=== PATIENT | male | born 1950 | race African-American/Black ===

== ENCOUNTER 2020-07-07 08:18 | Day surgery (SDC) | payer MEDICARE ==
[2020-07-02 12:40] VITALS: BMI 25.7
[2020-07-07 08:40] LABS: #Basophils 0.1 thou/uL (0.0-0.2); #Eosinphils 0.1 thou/uL (0.0-0.7); #Lymphocytes 2.2 thou/uL (1.20-3.40); #Monocytes 0.6 thou/uL (0.11-0.59); #Neutrophils 3.2 thou/uL (1.40-6.50); %Basophils 0.9 % (0.0-1.0); %Eosinophils 1.9 % (0.0-10.0); %Lymphocytes 35.7 % (21.0-51.0); %Monocytes 10.4 % (0.0-10.0); %Neutrophils 51.2 % (42.0-75.0); Hemoglobin 13.9 g/dL (14.0-18.0); Mean Corpuscular HGB CONC 31.7 g/dL (32.0-36.0); Mean Corpuscular Hemoglobin 31.2 pg (27.0-31.0); Mean Corpuscular Volume 98.4 fL (78.0-98.0); Mean Platelet Volume 9.1 fL (7.4-10.4); Platelet Count 146 thou/uL (130-400); RBC Distribution Width 13.6 % (11.5-14.5); Red Blood Cell (RBC) Count 4.45 mill/uL (4.70-6.10); White Blood Cell (WBC) Count 6.2 thou/uL (4.8-10.8)
[2020-07-07 08:45] LABS: Prothrombin Time 12.8 sec (12.0-14.7)
[2020-07-07 08:46] LABS: PTT 29.2 sec (22.9-36.1)
[2020-07-07] MEDS ORDERED: Iopamidol 370 76% 100 ML VIAL ONE (10:31)
[2020-07-07 14:30] VITALS: BP 179/76; TEMP 98
== END 2020-07-07 12:30 | disposition home or self-care (01) ==
LOC: CT 08:18
PROVIDERS: ATTEND Urology
PROC: 0TB13ZX Excision of Left Kidney, Percutaneous Approach, Diagnostic (ICD-10-PCS; principal; 2020-07-07)
DX: D41.02 Neoplasm of uncertain behavior of left kidney (principal); N40.1 Benign prostatic hyperplasia with lower urinary tract symptoms; I71.4 Abdominal aortic aneurysm, without rupture; I72.3 Aneurysm of iliac artery; M10.9 Gout, unspecified; M19.90 Unspecified osteoarthritis, unspecified site; E11.9 Type 2 diabetes mellitus without complications; I10 Essential (primary) hypertension; E78.5 Hyperlipidemia, unspecified; Z87.891 Personal history of nicotine dependence; Z79.899 Other long term (current) drug therapy
CPT/HCPCS: 50200; 74170; 77002; 85025; 85610; 85730; 88305; 88341; 88342; Q9967

== ENCOUNTER 2020-07-16 15:29 | Outpatient (CLI) | payer MEDICARE ==
[2020-07-16 17:32] LABS: Hemoglobin 14.5 g/dL (13.5-17.5); Mean Corpuscular HGB CONC 32.4 g/dL (32.0-36.0); Mean Corpuscular Hemoglobin 31.5 pg (27.0-33.0); Mean Corpuscular Volume 97.2 fl (81.2-95.1); Mean Platelet Volume 11.6 fl (7.4-10.4); Platelet Count 195 10x3/uL (150-450); RBC Distribution Width 14.4 % (11.5-14.5); Red Blood Cell (RBC) Count 4.61 10x6/uL (4.32-5.72); White Blood Cell (WBC) Count 7.1 10x3/uL (3.5-10.5)
[2020-07-16 17:33] LABS: Anion Gap 17 mmol/L (10-20); BUN (Urea Nitrogen) 25 mg/dL (8.4-25.7); Calc. Creatinine Clearance 0 mL/min (70-130); Calcium 9.3 mg/dL (7.8-10.44); Carbon Dioxide 23 mmol/L (23-31); Chloride 108 mmol/L (98-107); Glucose 84 mg/dL (80-115); Potassium 4.5 mmol/L (3.5-5.1); Sodium 143 mmol/L (136-145)
[2020-07-16 17:49] LABS: Bilirubin Neg (Negative); Blood, Urine 10 (Negative); Clarity Clear (Clear); Glucose, Urine (Dipstick) Normal (Negative); Ketone, Urine Negative (Negative); Leukocyte Negative (Negative); Nitrite Negative (Negative); Protein, Urine (Dipstick) 100 mg/dl (Neg-Trace); Specific Gravity, Urine 1.015 (1.002-1.036); Urobilinogen Normal mg/dL (Less than 2)
[2020-07-16 18:02] LABS: Bacteria/HPF 2+ HPF (None Seen); Mucous/LPF Rare LPF (<2+); RBC/HPF 0-3 HPF (0-3); Squamous Epithelial 0-3 HPF (0-3); WBC/HPF 0-3 HPF (0-3)
[2020-07-16 18:03] LABS: PTT 26.9 sec (22.0-33.0); Prothrombin Time 10.6 sec (9.5-12.1)
[2020-07-17 01:53] LABS: SARS-CoV-2 PCR by NAA Not Detected (NotDetected)
== END 2020-07-16 15:30 | disposition home or self-care (01) ==
LOC: LABBT 15:29
PROVIDERS: ATTEND Urology
DX: Z01.818 Encounter for other preprocedural examination (principal); C64.2 Malignant neoplasm of left kidney, except renal pelvis; Z20.822 Contact with and (suspected) exposure to COVID-19
CPT/HCPCS: 71045; 80048; 81001; 85027; 85610; 85730; 86850; 86900; 86901; 86920; 87086; 93005; U0003; U0005; 87635; 93010

== ENCOUNTER 2020-07-16 15:45 | Inpatient (IN) | payer MEDICARE ==
[2020-07-20 10:03] VITALS: BMI 25.1
[2020-07-21] MEDS ORDERED: Midazolam HCl 2 mg/2 ml Vial ONE (11:59)
[2020-07-21] MEDS ORDERED: Fentanyl 250 MCG/5 ML VIAL ONE (11:59)
[2020-07-21] MEDS ORDERED: Ondansetron PF 4 MG/2 ML Vial ONE (12:30)
[2020-07-21] MEDS ORDERED: Glycopyrrolate 0.2 MG/ML 5 ML SYRINGE ONE (12:30)
[2020-07-21] MEDS ORDERED: PROPOFOL 200 MG/20 ML VIAL ONE (12:30)
[2020-07-21] MEDS ORDERED: Dexamethasone 20 MG/5 ML VIAL ONE (12:30)
[2020-07-21] MEDS ORDERED: ePHEDrine Sulfate 50 MG/10 ML VIAL ONE (12:30)
[2020-07-21] MEDS ORDERED: PHENYLEPHRINE-NS 100 MCG/ML 10 ML SYRINGE ONE (12:30)
[2020-07-21] MEDS ORDERED: Rocuronium Bromide 10 MG/ML (10ML VIAL) ONE (12:30)
[2020-07-21] MEDS ORDERED: Lidocaine 1% PF 5 ML VIAL ONE (12:30)
[2020-07-21] MEDS ORDERED: Bupivacaine 0.25% HCL 30 ML VIAL ONE (12:34)
[2020-07-21] MEDS ORDERED: EPINEPHrine 1 MG/ML AMP ONE (12:34)
[2020-07-21] MEDS ORDERED: SUGAMMADEX SODIUM 200 MG/2 ML VIAL ONE (14:04)
[2020-07-21] MEDS ORDERED: Fentanyl 100 MCG/2 ML VIAL ONE ×3 (15:05→16:29)
[2020-07-21] MEDS ORDERED: diphenhydrAMINE 50 MG/ML VIAL IVP PRN ×2 (15:48→16:57)
[2020-07-21] MEDS ORDERED: Ondansetron PF 4 MG/2 ML Vial IVP PRN ×2 (15:48→16:57)
[2020-07-21] MEDS ORDERED: Zolpidem Tartrate 5 MG TAB PO PRN ×2 (15:48→16:57)
[2020-07-21] MEDS ORDERED: Morphine 4 MG/ML VIAL SLOW IVP PRN (15:48)
[2020-07-21] MEDS ORDERED: HYDROcodone/Acetaminophen 5/325 mg Tablet PO PRN (15:48)
[2020-07-21] MEDS ORDERED: diphenhydrAMINE 25 MG CAP PO PRN (16:57)
[2020-07-21] MEDS ORDERED: Naloxone HCl 0.4 mg/ml Vial IV PRN (16:57)
[2020-07-21] MEDS ORDERED: Promethazine HCl 25 MG/ML VIAL IM PRN (16:57)
[2020-07-21] MEDS ORDERED: diphenhydrAMINE 50 MG/ML VIAL IM PRN (16:57)
[2020-07-21] MEDS ORDERED: HYDROmorphone 10 mg/100 ml CADD IVPB PRN (16:57)
[2020-07-21] MEDS ORDERED: Communication Order-Pharmacy FS SCH (17:00)
[2020-07-21] MEDS ORDERED: Morphine 4 MG/ML VIAL ONE (17:17)
[2020-07-21] MEDS: Sodium Chloride 0.9% 1,000 ML IV SCH (19:48)
[2020-07-21] MEDS: Docusate 100 MG CAP PO SCH (20:45)
[2020-07-21] MEDS: Famotidine/PF 20 mg/2ml Vial SLOW IVP SCH (20:45)
[2020-07-22] MEDS ORDERED: Tamsulosin HCl 0.4 MG CAP ONE (08:03)
[2020-07-22] MEDS ORDERED: Enoxaparin Sodium 40 MG/0.4 ML SYRINGE ONE (08:03)
[2020-07-22] MEDS ORDERED: Amlodipine 5 MG TAB ONE (08:05)
[2020-07-22] MEDS ORDERED: Famotidine/PF 20 mg/2ml Vial ONE (08:06)
[2020-07-22 08:19] LABS: #Basophils 0.1 thou/uL (0.0-0.2); #Eosinphils 0.1 thou/uL (0.0-0.7); #Lymphocytes 1.7 thou/uL (1.20-3.40); #Monocytes 1.6 thou/uL (0.11-0.59); %Basophils 0.6 % (0.0-1.0); %Eosinophils 0.6 % (0.0-10.0); %Lymphocytes 13.3 % (21.0-51.0); %Neutrophils 72.4 % (42.0-75.0); Mean Corpuscular HGB CONC 31.7 g/dL (32.0-36.0); Mean Corpuscular Hemoglobin 31.8 pg (27.0-31.0); Mean Platelet Volume 9.8 fL (7.4-10.4); Platelet Count 142 thou/uL (130-400); RBC Distribution Width 13.3 % (11.5-14.5); White Blood Cell (WBC) Count 12.4 thou/uL (4.8-10.8)
[2020-07-22 08:26] LABS: Anion Gap 14 mmol/L (10-20); BUN (Urea Nitrogen) 25 mg/dL (8.4-25.7); Calc. Creatinine Clearance 47 mL/min (70-130); Calcium 8.4 mg/dL (7.8-10.44); Carbon Dioxide 21 mmol/L (23-31); Chloride 107 mmol/L (98-107); Glucose 151 mg/dL (80-115); Sodium 137 mmol/L (136-145)
[2020-07-22 08:41] LABS: Band 6 % (5-11); Lymphocytes 15 % (21-51); MDiff Complete? YES; Monocytes 9 % (0-10); Neutrophil 68 % (42-75); Platelet Morphology Comment Appears Adequate; RBC Morphology Normal; Reactive Lymphocytes 1 % (0-10)
[2020-07-22] MEDS: Amlodipine 10 MG TAB PO SCH (08:47)
[2020-07-22] MEDS: Enoxaparin Sodium 40 MG/0.4 ML SYRINGE SC SCH (08:48)
[2020-07-22] MEDS: Docusate 100 MG CAP PO SCH ×2 (08:48→20:35)
[2020-07-22] MEDS: Tamsulosin HCl 0.4 MG CAP PO SCH (08:48)
[2020-07-22] MEDS: Famotidine/PF 20 mg/2ml Vial SLOW IVP SCH ×2 (08:48→20:35)
[2020-07-22] MEDS: Sodium Chloride 0.9% 1,000 ML IV SCH ×2 (11:04→17:27)
[2020-07-22] MEDS: hydrALAZINE 20 MG/ML VIAL SLOW IVP PRN (11:24)
[2020-07-22] MEDS: hydrALAZINE 25 MG TAB PO SCH ×2 (14:44→20:35)
[2020-07-22] MEDS ORDERED: Insulin Regular 300 UNITS/3 ML VIAL SC PRN ×2 (16:51)
[2020-07-22] MEDS ORDERED: Dextrose 5% in Water 1,000 ML IV PRN (16:51)
[2020-07-22] MEDS ORDERED: Dextrose 50% Abboject 50 ML SYRINGE SLOW IVP PRN (16:51)
[2020-07-22] MEDS: cloNIDine 0.1 MG TAB PO PRN (17:20)
[2020-07-22] MEDS: chlorproMAZINE HCl 25 MG in Sodium Chloride 0.9% 50 ML IVPB PRN (20:36)
[2020-07-23] MEDS: cloNIDine 0.1 MG TAB PO PRN ×2 (03:54→23:34)
[2020-07-23 05:39] LABS: Anion Gap 14 mmol/L (10-20); BUN (Urea Nitrogen) 25 mg/dL (8.4-25.7); Calc. Creatinine Clearance 51 mL/min (70-130); Calcium 8.1 mg/dL (7.8-10.44); Carbon Dioxide 19 mmol/L (23-31); Chloride 106 mmol/L (98-107); Glucose 139 mg/dL (80-115); Potassium 4.3 mmol/L (3.5-5.1); Sodium 135 mmol/L (136-145)
[2020-07-23] MEDS: hydrALAZINE 20 MG/ML VIAL SLOW IVP PRN (06:10)
[2020-07-23] MEDS: Sodium Chloride 0.9% 1,000 ML IV SCH ×2 (07:27→17:12)
[2020-07-23] MEDS: hydrALAZINE 25 MG TAB PO SCH ×3 (09:04→19:51)
[2020-07-23] MEDS: Tamsulosin HCl 0.4 MG CAP PO SCH (09:04)
[2020-07-23] MEDS: Famotidine/PF 20 mg/2ml Vial SLOW IVP SCH ×2 (09:04→19:52)
[2020-07-23] MEDS: Docusate 100 MG CAP PO SCH ×2 (09:04→19:51)
[2020-07-23] MEDS: Lisinopril 20 MG TAB PO SCH ×2 (09:05→09:12)
[2020-07-23] MEDS: Baclofen 10 MG TAB PO SCH ×2 (09:05→19:52)
[2020-07-23] MEDS: Amlodipine 10 MG TAB PO SCH (09:05)
[2020-07-23] MEDS: Acetaminophen 500 MG TAB PO SCH ×3 (09:06→19:51)
[2020-07-23] MEDS: Enoxaparin Sodium 40 MG/0.4 ML SYRINGE SC SCH (09:06)
[2020-07-23 09:09] LABS: Hemoglobin A1c 5.8 % (4.0-6.0)
[2020-07-23] MEDS: traMADol HCl 50 MG TAB PO PRN ×2 (09:17→14:41)
[2020-07-23] MEDS ORDERED: Polyethylene Glycol 3350 17 GM Packet PO SCH (12:30)
[2020-07-23] MEDS: chlorproMAZINE HCl 25 MG in Sodium Chloride 0.9% 50 ML IVPB PRN (18:15)
[2020-07-24] MEDS: hydrALAZINE 20 MG/ML VIAL SLOW IVP PRN (05:00)
[2020-07-24] MEDS: Sodium Chloride 0.9% 1,000 ML IV SCH ×2 (06:18→10:02)
[2020-07-24] MEDS: Acetaminophen 500 MG TAB PO SCH ×2 (06:19→08:41)
[2020-07-24] MEDS: Tamsulosin HCl 0.4 MG CAP PO SCH (08:40)
[2020-07-24] MEDS: hydrALAZINE 25 MG TAB PO SCH (08:40)
[2020-07-24] MEDS: Amlodipine 10 MG TAB PO SCH (08:40)
[2020-07-24] MEDS: Docusate 100 MG CAP PO SCH (08:41)
[2020-07-24] MEDS: Famotidine/PF 20 mg/2ml Vial SLOW IVP SCH (08:41)
[2020-07-24] MEDS: Baclofen 10 MG TAB PO SCH (08:41)
[2020-07-24] MEDS: Enoxaparin Sodium 40 MG/0.4 ML SYRINGE SC SCH (08:41)
[2020-07-24] MEDS: Lisinopril 20 MG TAB PO SCH (08:42)
[2020-07-24 11:16] VITALS: BP 162/79; TEMP 98.9
== END 2020-07-24 13:02 | disposition home or self-care (01) | DRG 657 ==
LOC: SURG A 07-21 09:53 → EDSTATUS 07-21 15:45 → PACU-TCU 07-22 01:21 → SJJU 07-22 10:17
PROVIDERS: ADMIT Urology; ATTEND Urology
PROC: 0TB10ZZ Excision of Left Kidney, Open Approach (ICD-10-PCS; principal; 2020-07-21)
DX: C64.2 Malignant neoplasm of left kidney, except renal pelvis (principal); K56.7 Ileus, unspecified; Z20.822 Contact with and (suspected) exposure to COVID-19; E78.5 Hyperlipidemia, unspecified; I10 Essential (primary) hypertension; E11.9 Type 2 diabetes mellitus without complications; M10.9 Gout, unspecified; M19.90 Unspecified osteoarthritis, unspecified site; R06.6 Hiccough; Z79.899 Other long term (current) drug therapy
CPT/HCPCS: 36415; 36416; 74019; 80048; 83036; 85025; 86850; 86900; 86901; 88307; 88341; 88342; J0171; J0360; J0690; J1100; J1650; J2250; J2270; J2405; J2704; J3010; J3230; S0020; S0028

== ENCOUNTER 2021-03-16 08:08 | Outpatient (CLI) | payer MEDICARE | END 2021-03-16 08:09 | disposition home or self-care (01) | LOC: PET 08:08 | PROVIDERS: ATTEND Internal Medicine Hematology & Oncology | DX: C64.2 Malignant neoplasm of left kidney, except renal pelvis (principal); R93.5 Abnormal findings on diagnostic imaging of other abdominal regions, including retroperitoneum; C77.1 Secondary and unspecified malignant neoplasm of intrathoracic lymph nodes; Z90.5 Acquired absence of kidney | CPT/HCPCS: 78815; A9552 ==

== ENCOUNTER 2021-10-04 08:45 | Outpatient (CLI) | payer MEDICARE | END 2021-10-04 08:46 | disposition home or self-care (01) | LOC: PET 08:45 | PROVIDERS: ATTEND Internal Medicine Hematology & Oncology | DX: C64.2 Malignant neoplasm of left kidney, except renal pelvis (principal); R59.0 Localized enlarged lymph nodes | CPT/HCPCS: 78815; A9552 ==

== ENCOUNTER 2021-11-18 21:11 | Inpatient (IN) | payer MEDICARE ==
[2021-11-18] MEDS ORDERED: Diphenoxylate HCl/Atropine Tablet PO PRN (21:38)
[2021-11-18] MEDS ORDERED: Labetalol HCl 100 MG/20 ML VIAL SLOW IVP PRN (21:42)
[2021-11-18] MEDS ORDERED: Dextrose 5% in Water 1,000 ML IV SCH (21:45)
[2021-11-18] MEDS ORDERED: hydrALAZINE 25 MG TAB PO SCH (22:30)
[2021-11-18 22:41] VITALS: BMI 25.1
[2021-11-18 22:54] VITALS: BP 190/77
[2021-11-18 23:05] LABS: Troponin I 0.049 ng/mL (< 0.028)
[2021-11-19 01:22] LABS: Hemoglobin A1c 4.3 % (4.0-6.0)
[2021-11-19] MEDS ORDERED: hydrALAZINE 20 MG/ML VIAL SLOW IVP SCH (01:30)
[2021-11-19] MEDS: Dextrose 5%-Lactated Ringers 1,000 ML IV SCH ×2 (01:56→09:01)
[2021-11-19 04:42] LABS: #Eosinphils 0.5 thou/uL (0.0-0.7); #Lymphocytes 3.3 thou/uL (1.20-3.40); #Monocytes 0.8 thou/uL (0.11-0.59); #Neutrophils 4.2 thou/uL (1.40-6.50); %Basophils 0.5 % (0.0-1.0); %Eosinophils 5.7 % (0.0-10.0); %Lymphocytes 37.4 % (21.0-51.0); %Monocytes 8.7 % (0.0-10.0); %Neutrophils 47.8 % (42.0-75.0); ALT (SGPT) 18 U/L (8-55); AST (SGOT) 21 U/L (5-34); Albumin 2.6 g/dL (3.4-4.8); Alkaline Phosphatase 53 U/L (40-110); Anion Gap 14 mmol/L (10-20); BUN (Urea Nitrogen) 25 mg/dL (8.4-25.7); Bilirubin, Total 0.6 mg/dL (0.2-1.2); Calc. Creatinine Clearance 40 mL/min (70-130); Calcium 8.1 mg/dL (7.8-10.44); Carbon Dioxide 17 mmol/L (23-31); Chloride 112 mmol/L (98-107); Estimated GFR 37; Globulin 2.3 g/dL (2.4-3.5); Glucose 105 mg/dL (80-115); Hemoglobin 13.8 g/dL (14.0-18.0); MDiff Complete? YES; Macrocytosis SLIGHT = 6-15 cells (100X) (0-5/hpf); Mean Corpuscular HGB CONC 33.6 g/dL (32.0-36.0); Mean Platelet Volume 9.9 fL (7.4-10.4); Platelet Count 111 thou/uL (130-400); Platelet Morphology Comment Appears Decreased; Potassium 4.5 mmol/L (3.5-5.1); Protein, Total 4.9 g/dL (5.8-8.1); RBC Distribution Width 14.7 % (11.5-14.5); Red Blood Cell (RBC) Count 3.73 mill/uL (4.70-6.10); Sodium 138 mmol/L (136-145); White Blood Cell (WBC) Count 8.7 thou/uL (4.8-10.8)
[2021-11-19] MEDS ORDERED: Levothyroxine Sodium 50 MCG TAB PO SCH (06:00)
[2021-11-19] MEDS ORDERED: Minoxidil 2.5 MG TAB PO SCH ×2 (09:00→09:30)
[2021-11-19] MEDS ORDERED: Enoxaparin Sodium 40 MG/0.4 ML SYRINGE SC SCH (09:00)
[2021-11-19] MEDS ORDERED: Lisinopril 20 MG TAB PO SCH (09:00)
[2021-11-19] MEDS ORDERED: Amlodipine 10 MG TAB PO SCH (09:00)
[2021-11-19] MEDS: hydrALAZINE 25 MG TAB PO SCH ×2 (09:00→17:02)
[2021-11-19] MEDS ORDERED: Tamsulosin HCl 0.4 MG CAP PO SCH (09:00)
[2021-11-19] MEDS ORDERED: Rosuvastatin 20 MG TAB PO SCH (09:00)
[2021-11-19] MEDS ORDERED: Stress 600 With Zinc 1 TAB PO SCH (09:00)
[2021-11-19] MEDS ORDERED: Megestrol Acetate 800 MG/20 ML UDCUP PO SCH (09:00)
[2021-11-19] MEDS ORDERED: Allopurinol 100 MG TAB PO SCH (09:00)
[2021-11-19] MEDS ORDERED: Cabozantinib S-Malate [Cabometyx] 40 MG Tablet PO SCH (09:00)
[2021-11-19] MEDS ORDERED: Spironolactone 100 MG TAB PO SCH (09:00)
[2021-11-19] MEDS ORDERED: cloNIDine 0.1 MG TAB PO SCH ×2 (11:30→21:00)
[2021-11-19] MEDS ORDERED: cloNIDine 0.1mg/24 Hour PATCH TD SCH (12:00)
[2021-11-19 17:06] VITALS: TEMP 99.5
[2021-11-20] MEDS ORDERED: Minoxidil 10 MG TAB PO SCH (09:00)
[2021-11-20] MEDS ORDERED: Allopurinol 100 MG TAB PO SCH (09:00)
== END 2021-11-19 18:42 | disposition home or self-care (01) | DRG 638 ==
LOC: IMCU/EMU 21:12
PROVIDERS: ADMIT Family Medicine; ATTEND Family Medicine
DX: E11.649 Type 2 diabetes mellitus with hypoglycemia without coma (principal); C64.9 Malignant neoplasm of unspecified kidney, except renal pelvis; I16.1 Hypertensive emergency; N17.9 Acute kidney failure, unspecified; E11.22 Type 2 diabetes mellitus with diabetic chronic kidney disease; I12.9 Hypertensive chronic kidney disease with stage 1 through stage 4 chronic kidney disease, or unspecified chronic kidney disease; E03.9 Hypothyroidism, unspecified; M10.9 Gout, unspecified; N40.0 Benign prostatic hyperplasia without lower urinary tract symptoms; N18.32 Chronic kidney disease, stage 3b; K52.89 Other specified noninfective gastroenteritis and colitis; T45.1X5A Adverse effect of antineoplastic and immunosuppressive drugs, initial encounter; I16.0 Hypertensive urgency; R77.8 Other specified abnormalities of plasma proteins; T38.3X5A Adverse effect of insulin and oral hypoglycemic [antidiabetic] drugs, initial encounter; Z83.3 Family history of diabetes mellitus; Z79.899 Other long term (current) drug therapy; Z87.891 Personal history of nicotine dependence; Z79.890 Hormone replacement therapy; Z82.49 Family history of ischemic heart disease and other diseases of the circulatory system
CPT/HCPCS: 36415; 36416; 80053; 83036; 84443; 84681; 85025; 87324; 87449; J0360; J1650; J7070

== ENCOUNTER 2022-04-01 10:15 | Outpatient (CLI) | payer MEDICARE | END 2022-04-01 10:16 | disposition home or self-care (01) | LOC: PET 10:15 | PROVIDERS: ATTEND Internal Medicine Hematology & Oncology | DX: C64.2 Malignant neoplasm of left kidney, except renal pelvis (principal); Z79.899 Other long term (current) drug therapy | CPT/HCPCS: 78815; A9552 ==

== ENCOUNTER 2022-07-08 09:30 | Outpatient (CLI) | payer MEDICARE | END 2022-07-08 09:31 | disposition home or self-care (01) | LOC: PET 09:30 | PROVIDERS: ATTEND Internal Medicine Hematology & Oncology | DX: C64.2 Malignant neoplasm of left kidney, except renal pelvis (principal) | CPT/HCPCS: 78815; A9552 ==

== ENCOUNTER 2022-11-02 22:23 | Inpatient (IN) | payer MEDICARE ==
[2022-11-03 00:42] VITALS: BMI 22.8
[2022-11-03 01:41] LABS: Bacteria/HPF None Seen HPF (None Seen); Bilirubin Negative (Negative); Blood, Urine Trace (Negative); CAUTI Indications for Culture Immunosuppressed; Clarity Clear (Clear); Glucose, Urine (Dipstick) 50 mg/dL (Negative); Ketone, Urine Negative (Negative); Leukocyte Negative Leu/uL (Negative); Nitrite Negative (Negative); Protein, Urine (Dipstick) 100 mg/dL (Neg-Trace); RBC/HPF 0-3 HPF (0-3); Specific Gravity, Urine 1.014 (1.002-1.036); Squamous Epithelial 0-3 HPF (0-3); Urobilinogen Normal mg/dL (Less than 2); WBC/HPF 0-3 HPF (0-3); pH, Urine 5.5 (5.0-9.0)
[2022-11-03 01:44] LABS: Urine Culture Reflex Yes Yes
[2022-11-03] MEDS: Sodium Bicarbonate 150 MEQ in Dextrose 5% in Water 1,000 ML IV SCH ×2 (03:16→08:37)
[2022-11-03] MEDS ORDERED: Glucagon 1 MG/ML KIT IM PRN (04:13)
[2022-11-03] MEDS ORDERED: Dextrose 5% in Water 1,000 ML IV PRN (04:13)
[2022-11-03] MEDS ORDERED: Dextrose 50% Abboject 50 ML SYRINGE SLOW IVP PRN (04:13)
[2022-11-03 04:27] LABS: Base Excess (BEa) -9.1 mEq/L (-2.0 to +3.0); Calcium, Ionized (arterial) 1.23 mmol/L (1.12-1.30); Carboxyhemoglobin (COHb) 0.2 gm% (0.0-3.0); Hematocrit-ABG 38 % (42.0-52.0); Hemoglobin (Hb) 12.9 g/dL (14.0-18.0); Potassium - ABG Lab 5.72 mmol/L (3.70-5.30); pH, Arterial 7.382 (7.35-7.45)
[2022-11-03 04:28] LABS: CO2 Tension 24.3 mmHg (35.0-45.0)
[2022-11-03 04:29] LABS: Actual Bicarbonate (HCO3a) 14.1 mEq/L (22-28); Puncture Site RRA
[2022-11-03 04:35] LABS: #Monocytes 0.8 thou/uL (0.11-0.59); #Neutrophils 4.9 thou/uL (1.40-6.50); %Basophils 0.1 % (0.0-1.0); %Eosinophils 0.4 % (0.0-10.0); %Lymphocytes 25.4 % (21.0-51.0); %Monocytes 10.1 % (0.0-10.0); %Neutrophils 63.6 % (42.0-75.0); Hematocrit 36.3 % (42.0-52.0); Hemoglobin 11.9 g/dL (14.0-18.0); Mean Corpuscular HGB CONC 32.8 g/dL (32.0-36.0); Mean Corpuscular Hemoglobin 32.3 pg (27.0-31.0); Mean Corpuscular Volume 98.6 fl (78.0-98.0); Mean Platelet Volume 12.7 fL (7.4-10.4); RBC Distribution Width 14.1 % (11.5-14.5); Red Blood Cell (RBC) Count 3.68 mill/uL (4.70-6.10); White Blood Cell (WBC) Count 7.7 10x3/uL (4.8-10.8)
[2022-11-03 04:37] LABS: Platelet Count 71 10x3/uL (130-400)
[2022-11-03] MEDS ORDERED: Sodium Bicarb 50 MEQ/50 ML VIAL IVP SCH (04:45)
[2022-11-03 04:55] LABS: ALT (SGPT) 9 U/L (8-55); AST (SGOT) 13 U/L (5-34); Albumin 2.8 g/dL (3.4-4.8); Alkaline Phosphatase 48 U/L (40-110); Anion Gap 20 mmol/L (10-20); BUN (Urea Nitrogen) 74 mg/dL (8.4-25.7); Bilirubin, Total 0.4 mg/dL (0.2-1.2); Calc. Creatinine Clearance 15 mL/min (70-130); Calcium 8.8 mg/dL (7.8-10.44); Carbon Dioxide 14 mmol/L (23-31); Chloride 111 mmol/L (98-107); Estimated GFR 13; Globulin 2.2 g/dL (2.4-3.5); Glucose 200 mg/dL (83-110); Sodium 139 mmol/L (136-145)
[2022-11-03] MEDS ORDERED: LOKELMA 10 GM PACKET PO SCH (05:00)
[2022-11-03 05:07] LABS: Potassium 6.2 mmol/L (3.5-5.1)
[2022-11-03 06:36] LABS: Anion Gap 13 mmol/L (10-20); BUN (Urea Nitrogen) 73 mg/dL (8.4-25.7); Calc. Creatinine Clearance 15 mL/min (70-130); Calcium 8.5 mg/dL (7.8-10.44); Carbon Dioxide 17 mmol/L (23-31); Chloride 114 mmol/L (98-107); Estimated GFR 13; Glucose 199 mg/dL (83-110); Potassium 5.5 mmol/L (3.5-5.1); Sodium 138 mmol/L (136-145)
[2022-11-03] MEDS: HumaLOG 300 UNITS/3 ML VIAL SC PRN ×3 (08:38→16:25)
[2022-11-03] MEDS: Famotidine/PF 20 mg/2ml Vial SLOW IVP SCH (08:39)
[2022-11-03] MEDS ORDERED: Heparin 5,000 UNITS/ML VIAL SC SCH (09:00)
[2022-11-03] MEDS ORDERED: Levothyroxine Sodium 50 MCG TAB PO SCH ×2 (09:00→10:30)
[2022-11-03 10:29] LABS: ALT (SGPT) 9 U/L (8-55); AST (SGOT) 14 U/L (5-34); Albumin 2.6 g/dL (3.4-4.8); Alkaline Phosphatase 47 U/L (40-110); Anion Gap 13 mmol/L (10-20); BUN (Urea Nitrogen) 69 mg/dL (8.4-25.7); Bilirubin, Total 0.4 mg/dL (0.2-1.2); Calc. Creatinine Clearance 16 mL/min (70-130); Carbon Dioxide 18 mmol/L (23-31); Chloride 112 mmol/L (98-107); Estimated GFR 14; Globulin 2.4 g/dL (2.4-3.5); Glucose 272 mg/dL (83-110); Magnesium 1.3 mg/dL (1.6-2.6); Phosphorus 3.1 mg/dL (2.3-4.7); Potassium 5.1 mmol/L (3.5-5.1); Sodium 138 mmol/L (136-145)
[2022-11-03 12:52] LABS: Hemoglobin A1c 6.1 % (4.0-6.0)
[2022-11-03 22:35] LABS: Anion Gap 15 mmol/L (10-20); BUN (Urea Nitrogen) 61 mg/dL (8.4-25.7); Calc. Creatinine Clearance 19 mL/min (70-130); Calcium 7.7 mg/dL (7.8-10.44); Carbon Dioxide 19 mmol/L (23-31); Chloride 107 mmol/L (98-107); Estimated GFR 17; Glucose 179 mg/dL (83-110); Potassium 4.2 mmol/L (3.5-5.1); Sodium 137 mmol/L (136-145)
[2022-11-04 04:43] LABS: #Eosinphils 0.1 thou/uL (0.0-0.7); #Monocytes 0.7 thou/uL (0.11-0.59); %Basophils 0.3 % (0.0-1.0); %Eosinophils 1.4 % (0.0-10.0); %Monocytes 9.3 % (0.0-10.0); %Neutrophils 53.7 % (42.0-75.0); Hematocrit 37.1 % (42.0-52.0); Hemoglobin 12.4 g/dL (14.0-18.0); Mean Corpuscular HGB CONC 33.4 g/dL (32.0-36.0); Mean Corpuscular Hemoglobin 32.5 pg (27.0-31.0); Mean Corpuscular Volume 97.4 fl (78.0-98.0); Mean Platelet Volume 12.3 fL (7.4-10.4); Red Blood Cell (RBC) Count 3.81 mill/uL (4.70-6.10); White Blood Cell (WBC) Count 7.4 10x3/uL (4.8-10.8)
[2022-11-04 04:49] LABS: Platelet Count 57 10x3/uL (130-400)
[2022-11-04 05:11] LABS: ALT (SGPT) 9 U/L (8-55); AST (SGOT) 15 U/L (5-34); Albumin 2.6 g/dL (3.4-4.8); Alkaline Phosphatase 44 U/L (40-110); Anion Gap 13 mmol/L (10-20); BUN (Urea Nitrogen) 60 mg/dL (8.4-25.7); Bilirubin, Total 0.4 mg/dL (0.2-1.2); Calc. Creatinine Clearance 18 mL/min (70-130); Calcium 7.9 mg/dL (7.8-10.44); Carbon Dioxide 21 mmol/L (23-31); Chloride 108 mmol/L (98-107); Estimated GFR 17; Globulin 2.3 g/dL (2.4-3.5); Glucose 133 mg/dL (83-110); Magnesium 1.2 mg/dL (1.6-2.6); Phosphorus 2.5 mg/dL (2.3-4.7); Potassium 4.3 mmol/L (3.5-5.1); Protein, Total 4.9 g/dL (5.8-8.1); Sodium 138 mmol/L (136-145)
[2022-11-04] MEDS ORDERED: Levothyroxine Sodium 50 MCG TAB PO SCH (06:00)
[2022-11-04] MEDS: Famotidine/PF 20 mg/2ml Vial SLOW IVP SCH (09:26)
[2022-11-04 12:23] VITALS: TEMP 98.8
== END 2022-11-04 13:08 | disposition home or self-care (01) | DRG 683 ==
LOC: CCU 22:23
PROVIDERS: ADMIT Student in an Organized Health Care Education/Training Program; ATTEND Student in an Organized Health Care Education/Training Program
PROC: 4A033R1 Measurement of Arterial Saturation, Peripheral, Percutaneous Approach (ICD-10-PCS; principal; 2022-11-03)
PROC: 02HV33Z Insertion of Infusion Device into Superior Vena Cava, Percutaneous Approach (ICD-10-PCS; 2022-11-03)
PROC: B548ZZA Ultrasonography of Superior Vena Cava, Guidance (ICD-10-PCS; 2022-11-03)
PROC: 5A1D70Z Performance of Urinary Filtration, Intermittent, Less than 6 Hours Per Day (ICD-10-PCS; 2022-11-03)
DX: N17.9 Acute kidney failure, unspecified (principal); C64.9 Malignant neoplasm of unspecified kidney, except renal pelvis; E87.20 Acidosis, unspecified; E87.5 Hyperkalemia; E11.22 Type 2 diabetes mellitus with diabetic chronic kidney disease; I12.9 Hypertensive chronic kidney disease with stage 1 through stage 4 chronic kidney disease, or unspecified chronic kidney disease; N18.32 Chronic kidney disease, stage 3b; N40.0 Benign prostatic hyperplasia without lower urinary tract symptoms; D69.6 Thrombocytopenia, unspecified; E87.8 Other disorders of electrolyte and fluid balance, not elsewhere classified; Z90.49 Acquired absence of other specified parts of digestive tract; Z90.5 Acquired absence of kidney; Z87.891 Personal history of nicotine dependence; Z79.890 Hormone replacement therapy; Z79.899 Other long term (current) drug therapy; E83.42 Hypomagnesemia
CPT/HCPCS: 36415; 36416; 36600; 80053; 81001; 82805; 83036; 83735; 84100; 84132; 85025; 87086; J1815; J7070; S0028

== ENCOUNTER 2023-02-09 08:45 | Outpatient (CLI) | payer MEDICARE | END 2023-02-09 08:46 | disposition home or self-care (01) | LOC: PET 08:45 | PROVIDERS: ATTEND Internal Medicine Hematology & Oncology | DX: C64.2 Malignant neoplasm of left kidney, except renal pelvis (principal) | CPT/HCPCS: 78815; A9552 ==

== ENCOUNTER → 2023-05-05 | Outpatient (CLI) | payer MEDICARE | LOC: PET 08:45 | PROVIDERS: ATTEND Internal Medicine Hematology & Oncology | DX: C64.2 Malignant neoplasm of left kidney, except renal pelvis (principal); R59.0 Localized enlarged lymph nodes | CPT/HCPCS: 78815; A9552 ==